=== PATIENT | male | born 1975 | race Caucasian/White ===

== ENCOUNTER → 2016-11-30 | Day surgery (SDC) | payer OTHER ==
[~2016-11-30] VITALS: Ht 180.3 cm; Wt 100.7 kg
[~2016-11-30] MED LIST: LORATADINE-D 21 EACH PO
--- NOTE | 2016-11-30 18:26 | Operative Report ---
Operative/Inv Procedure Report Surgery Date: 11/30/16 Name of Procedure: Left knee arthroscopy, partial medial meniscectomy Pre-Operative Diagnosis: Left knee medial meniscus tear Post-Operative Diagnosis: Left knee medial meniscus tear Estimated Blood Loss: scant Surgeon/Economist Research Assistant: BULL ROMEO MD Anesthesia: laryngeal mask airway Complications: None Condition: Stable to PACU Operative Indication: This is a 41-year-old male who injured his knee months ago after repetitive exercise. MRI showed a medial meniscus tearRisks and benefits of the procedure were discussed with the patient at length. Risks include but are not limited to nerve damage, muscle damage, infection, blood loss, blood clots, pulmonary embolus, and even . The patient agreed to the above risks and elected to proceed with surgery. Operative/Procedure Note Note: The patient was placed supine on the operating room table. A tourniquet was applied. The lower extremity prepped and draped in normal sterile fashion. A timeout was performed before the incision. The site marking was visualized before incision. After the leg was prepped and draped, an Esmarch was used to exsanguinate the extremity. The tourniquet was inflated. A standard inferolateral portal was established with an 11 blade. The camera was inserted. A medial portal was established with a spinal needle and an 11 blade. The diagnostic arthroscopy was then performed which showed the above findings. A shaver as well as a biter was used to debride the medial meniscus back to a stable rim of cartilage. The shaver and biter was then switched to the medial portal and further debridement was performed. The shaver was then used to perform chondroplasty of the medial femoral condyle. The knee was copiously irrigated. The portal sites were closed with 3-0 nylon suture in a simple interrupted fashion. The knee was injected with 10 mL of 0.25% Marcaine with epinephrine. A dry sterile dressing was applied and the patient was transferred to PACU in stable condition. Findings: Complex tear of the posterior horn and junction of the body and posterior horn medial meniscus. Grade 3 chondral changes over the medial femoral condyle. ACL intact. PCL intact. Lateral compartment articular cartilage with grade 1 chondral changes over the lateral plateau. Lateral meniscus intact. Patellofemoral joint articular cartilage intact.
== END ==
LOC: STS 10-05 07:00 → EDBD 07:00
DX: S83.232A Complex tear of medial meniscus, current injury, left knee, initial encounter (principal); Y93.89 Activity, other specified
CPT/HCPCS: J0690; J2250